=== PATIENT | female | born 1995 | race Caucasian/White ===

== ENCOUNTER 2016-11-14 18:59 | Emergency (ER) | payer OTHER ==
[~2016-11-14] VITALS: Ht 162.6 cm; Wt 81.8 kg
[2016-11-14 19:05] VITALS: BP 158/99; TEMP 97.8
[2016-11-14] MEDS ORDERED: PROZAC 20MG20 MG PO (19:07)
[2016-11-14] MEDS ORDERED: HCTZ 25MG TAB25 MG PO (19:07)
[2016-11-14] MEDS ORDERED: HEATHER0.35 MG PO (19:07)
[2016-11-14 19:44] LABS: HEMATOCRIT 40.3 % (37.0-47.0); HEMOGLOBIN 14.5 g/dl (12.5-16.0); MEAN CELL VOLUME 91 fl (80.0-100.0); MEAN CORPUSCULAR HEMOGLOBIN 33 pg (27.0-31.0); MEAN CORPUSCULAR HGB CONC 36 g/dl (33.0-37.0); PLATELET COUNT 188 K/mm3 (130-400); RED BLOOD COUNT 4.41 M/mm3 (4.10-5.30); REDCELL DISTRIBUTION WIDTH-CV 12.6 % (11.5-14.5); WHITE BLOOD COUNT 8.9 K/mm3 (4.8-10.8)
[2016-11-14 19:57] LABS: ADD PATHOLOGY DIFF REVIEW NO
[2016-11-14 19:59] LABS: ADJUSTED CALCIUM 9.1 mg/dL (8.4-10.2); ALBUMIN 4.3 gm/dL (3.5-5.0); BILIRUBIN,TOTAL 3.4 mg/dL (0.0-1.0); CALCIUM 9.3 mg/dL (8.4-10.2); CREATININE, serum 0.65 mg/dL (0.52-1.25); POTASSIUM 3.7 mmol/L (3.4-5.0); TOTAL PROTEIN 7.8 gm/dL (6.4-8.2)
[2016-11-14 20:23] LABS: BAND 3 % (0-10); NEUTROPHILS 34 % (42.0-75.2); TOTAL CELLS COUNTED 100
[2016-11-14 20:24] LABS: PLATELET ESTIMATE NORMAL (NORMAL)
[2016-11-14] MEDS ORDERED: ZOFRAN 4MG T4 MG/TAB PO (20:58)
[2016-11-14 21:11] VITALS: PULSE 85
== END 2016-11-14 21:12 | disposition home or self-care (01) ==
LOC: COL.ER 18:59
PROVIDERS: Emergency Medicine
DX: B27.90 Infectious mononucleosis, unspecified without complication (principal); R11.10 Vomiting, unspecified
CPT/HCPCS: J1100; J1885; J2405; J7030